=== PATIENT | female | born 1970 | race Caucasian/White ===

== ENCOUNTER 2019-03-04 10:22 | Outpatient (CLI) | payer MEDICAID ==
[2019-03-04] MEDS ORDERED: diatr meglu/diatrizoate 30ml oral sol.-(3 dose) bottle ONE (12:00)
== END 2019-03-04 23:59 | disposition home or self-care (01) ==
LOC: RAD 10:22
PROVIDERS: ATTEND Obstetrics & Gynecology
DX: C56.1 Malignant neoplasm of right ovary (principal)
CPT/HCPCS: 74270; Q9963

== ENCOUNTER 2022-02-21 18:33 | Emergency (ER) | payer MEDICARE, MEDICAID ==
[~2022-02-21] VITALS: Ht 157.5 cm; Wt 99.0 kg
[2022-02-21 19:00] VITALS: BP 153/89
[2022-02-21] MEDS ORDERED: naproxen 500mg tablet PO ONE (19:40)
== END 2022-02-21 20:02 | disposition home or self-care (01) ==
LOC: ER 18:33
DX: S93.401A Sprain of unspecified ligament of right ankle, initial encounter (principal); Z85.43 Personal history of malignant neoplasm of ovary; Z88.5 Allergy status to narcotic agent; Z88.1 Allergy status to other antibiotic agents; W21.89XA Striking against or struck by other sports equipment, initial encounter; Y93.89 Activity, other specified; Y92.89 Other specified places as the place of occurrence of the external cause; Y99.8 Other external cause status
CPT/HCPCS: 29515; 73610; 99284